=== PATIENT | male | born 1975 | race Caucasian/White ===

== ENCOUNTER 2022-07-16 04:16 | Emergency (ER) | payer OTHER, SELFPAY ==
--- NOTE | ~2022-07-16 | CT_ITS ---
EXAMINATION: CT ABDOMEN AND PELVIS WITHOUT CONTRAST CLINICAL INFORMATION: Right flank pain, hematuria. COMPARISON: None TECHNIQUE: Multidetector volumetric imaging was performed from the superior aspect of the liver through the pubic symphysis. Sagittal and coronal reformatted images were obtained on the technologist's workstation. This CT examination was performed using dose optimization techniques as appropriate, variously including the following: *Automated exposure control *Adjustment of mA and/or kV according to patient size (this includes techniques or standardized protocols for targeted exams where dose is matched to indication/reason for exam; i.e. extremities or head) *Use of iterative reconstruction technique DLP: 831 mGy-cm FINDINGS: LUNG BASES: The visualized lung bases are unremarkable. LIVER, GALLBLADDER, AND BILIARY TREE: Diffuse low density of the liver is present suspicious for hepatic steatosis. The gallbladder is unremarkable with no evidence of radiopaque gallstones, gallbladder wall thickening, or obvious pericholecystic inflammatory changes. PANCREAS: Unremarkable. SPLEEN: Several subcentimeter low density (macroscopic fat density) foci are noted within the spleen and are benign in appearance. ADRENAL GLANDS: Unremarkable. KIDNEYS AND URETERS: Right kidney: A 3.5 mm x 2 mm calculus is present at the right ureteropelvic junction 16 cm deep to the right posterior axillary line. Mild right hydronephrosis is present with preservation of the right central sinus fat. A 1 mm calculus is present in the right renal pelvis. No perinephric fluid collections noted. Mild right perinephric fat reticulation suspicious for mild perinephric inflammatory changes is noted. No additional right-sided ureteral calculi. Left kidney: No left-sided nephrolithiasis. No hydronephrosis or perinephric inflammatory changes. Single 4.5 cm diameter rounded low-density (-5 Hounsfield units) benign-appearing unilocular simple cyst requiring no additional imaging follow-up associated with the anterior superior pole the left kidney. BLADDER: Physiologically decompressed. GASTROINTESTINAL TRACT: Normal appendix. No free intraperitoneal fluid or gas collections. No intestinal dilatation or mural thickening. Normal stomach. ABDOMINAL WALL: Periumbilical hernia containing fat measuring 2.5 cm in diameter without associated inflammatory changes. LYMPH NODES: Normal. VASCULAR: Unremarkable. PELVIC VISCERA: Normal size of the prostate. OSSEOUS STRUCTURES: Partial visualization of posterior disc-osteophyte complex at L4-L5 and mild posterior broad-based disc bulge at L5-S1. No vertebral body compression deformities. CT/CT abdomen pelvis wo IV con IMPRESSION: *Right-sided obstructive nephropathy. A single 3.5 mm x 2 mm calculus is present at the right ureteropelvic junction associated with mild right hydronephrosis. This calculus resides 16 cm deep to the right posterior axillary line. An additional nonobstructing 1 mm calculus is present in the right renal pelvis. No additional right-sided urolithiasis. No left-sided urolithiasis. No perinephric fluid collections. *Normal appendix. *Partially visualized posterior disc bulges at L4-L5 and L5-S1 as detailed above.
[2022-07-16 04:56] VITALS: BP 132/75; PULSE 57; RESP 18; TEMP 36.4; O2SAT 98; BMI 38.0
[2022-07-16 05:22] LABS: MANUAL DIFF FLAG NO
[2022-07-16 05:24] LABS: Basophils Percent Auto 0.5 % (0-2); Eosinophils Absolute Auto 0.1 X10*3/uL (0.0-0.4); Eosinophils Percent Auto 1.4 % (0-4); Hematocrit 44.9 % (42.0-52.0); Hemoglobin 14.9 g/dl (14.0-18.0); Imm Gran Abs Auto 0.02 X10*3/uL (0.00-0.03); Imm Gran Pct Auto 0.3 % (0.0-0.4); Lymphocytes Absolute Auto 2.9 X10*3/uL (1.2-4.9); Lymphocytes Percent Auto 35.8 % (20-40); Mean Corpuscular HGB Conc 33.2 g/dl (31.0-36.0); Mean Corpuscular Volume 93.5 fL (80.0-98.0); Mean Platelet Volume 9.8 fL (9.4-12.4); Monocytes Absolute Auto 0.6 X10*3/uL (0.1-1.2); Monocytes Percent Auto 7.4 % (2-11); Neutrophils Absolute Auto 4.4 x10*3/uL (2.0-8.3); Neutrophils Percent Auto 54.6 % (45-73); Platelet Count 237 X10*3/uL (160-400); Red Cell Distribution Width 12.8 % (11.0-16.0)
[2022-07-16 05:25] LABS: Appearance Urine Clear; Color Urine Yellow; Glucose Urine UA Negative (Negative); Leukocyte Esterase Urine Negative (Negative); Nitrite Urine Negative (Negative); PH 5.5 (5.0-9.0); Specific Gravity - Urine 1.025 (1.005-1.025); UMIC TRIGGER UACC YES; Urine Blood Large (3+) (Negative); Urine Ketones Negative (Negative); Urine Protein Negative (Neg-Trace)
[2022-07-16 05:29] LABS: Bacteria Urine None Seen (None Seen); Hyaline Casts Urine 0-2 /LPF (0-2); RBC Urine >20 /HPF (0-2); Squamous Epithelial Cell Urine 0-2 /HPF (0-2); WBC Urine 0-5 /HPF (0-5)
[2022-07-16 05:47] LABS: Anion Gap 18 (12-20); Blood Urea Nitrogen 16 mg/dL (9-16); Calcium 9.5 mg/dL (8.4-10.2); Carbon Dioxide 22 mmol/L (22-29); Chloride 105 mmol/L (96-108); Creatinine Clr Calc Pharmacy 111.4; Estimated Glomerular Filt Rate > 60; Glucose Random 142 mg/dL (60-115); Potassium 3.9 mmol/L (3.3-5.1); Sodium 141 mmol/L (135-145)
[2022-07-16 06:06] LABS: Alanine Aminotransferase 35 U/L (0-40); Albumin Level 4.6 g/dL (3.5-5.0); Alkaline Phosphatase 59 U/L (39-117); Aspartate Amino Transferase 21 U/L (5-37); Bilirubin Direct 0.2 mg/dL (0.0-0.5); Bilirubin Total 0.5 mg/dL (0.0-1.0); Lipase 26 U/L (8-78); Total Protein 7.4 g/dL (6.5-8.0)
--- NOTE | 2022-07-16 06:08 | ED.ABDPAIN ---
HPI - Abdominal Pain General Chief Complaint: Abdominal Pain Stated Complaint: abd pain Time Seen by Provider: 07/16/22 06:04 Source: patient Mode of arrival: ambulatory Limitations: no limitations History of Present Illness HPI narrative: 47 yo maveronica no sig PMH - known umbilical hernia presents with acute onset R flank pain at 3am with some dry heaving unable to actually vomit so he noted some scant streaks of blood in mouth after trying to vomit. This has never happened before. He was able to urinate and didn't notice anything MD elicited complaint: flank pain Pertinent past history: none Onset (ago): hour(s) (3) Pain Consistency: constant Location: R flank Severity: severe Quality: stabbing Radiation: RLQ Migration to: RLQ Exacerbating factors: nothing Relieving factors: nothing Associated symptoms: nausea Related Data Previous Rx's Medication Instructions Recorded famotidine 20 mg tablet (Pepcid) 20 mg PO DAILY #14 tabs 07/16/22 ibuprofen 600 mg tablet 600 mg PO Q8H 4 days #30 tabs 07/16/22 morphine 15 mg immediate release 15 mg PO TID PRN pain #10 tabs 07/16/22 tablet ondansetron 4 mg disintegrating 4 mg PO Q8H PRN nausea and 07/16/22 tablet vomiting #20 tabs tamsulosin 0.4 mg capsule 0.4 mg PO DAILY 10 days #10 caps 07/16/22 Allergies Allergy/AdvReac Type Severity Reaction Status Date / Time No Known Allergies Allergy Verified 07/16/22 04:58 Review of Systems Review of Systems Constitutional : No Weight loss, No Fever, No Chills ENT/Mouth : No sore throat, No Rhinorrhea Eyes: No Swelling, No Redness Cardiovascular : No Chest Pain, No SOB, No edema Respiratory : No Cough, No Sputum, No Wheezing Gastrointestinal : Positive Nausea, Positive Vomiting, no Diarrhea, positive abdominal Pain, No Hematochezia, No Melena Genitourinary : No Dysuria, No Urinary Frequency, No Hematuria, No Urgency Musculoskeletal : No joint pain, No Myalgias, No Joint Swelling Skin : No Skin Lesions, No rash Neuro : No Weakness, No Numbness, No Dizziness, No Headache Psych : No Anxiety/Panic, No Depression Heme/Lymph: No Bruising, No Lymphadenopathy Endocrine : No Polyuria, No Polydipsia All other systems reviewed and are negative. PMFSH Past Medical History Attestation statement: The following information was validated with the patient. Medical History Umbilical hernia Social History Social History (Updated 07/16/22 @ 06:50 by Pauly Rangel DO) Patient Tobacco Use Status: Never used Tobacco Advance Directives: No Physical Exam ED Vital Signs: Vital Signs - 24 hr 07/16/22 04:56 07/16/22 07:24 07/16/22 08:17 Temperature 97.6 F 98.1 F Pulse Rate 57 58 57 Respiratory Rate 18 19 18 Blood Pressure 132/75 132/80 Pulse Oximetry 98 95 97 Oxygen Delivery Method Room Air Room Air Room Air BMI result Body Mass Index 38.0 Appearance: Alert. Oriented X3. in pain mils acute distress. Eyes: Pupils equal, round and reactive to light. ENT: Pharynx normal. Neck: Normal inspection. Neck supple. CVS: Normal heart rate and rhythm. Pulses normal. Respiratory: No respiratory distress. Breath sounds normal. Abdomen: Soft and mild R flank pain. UH noted but soft and nontender Skin: Skin warm and dry. Normal skin color. Normal skin turgor. Extremities: No lower extremity edema. Neuro: Oriented X 3. No motor deficit. No sensory deficit. Course Course Course Narrative: pain resolved, feels better, stable for DC discussed with Urology outpatient follow up MDM - Abdominal Pain MDM Narrative Medical decision making narrative: 47 yo male with hx of umbilical hernia here with c/o R flank pain and nausea - scant streaks of blood from forceful dry heaving (suspect MW tear) not on blood thinners. He has flank pain and hematuria suspect renal colic. IVF, IV morphine for pain, CT scan for renal colic ordered. Dispo per results and findings. Lab Data Result diagrams: 07/16/22 05:16 07/16/22 05:16 Labs: Lab Results 07/16/22 07/16/22 07/16/22 Range/Units 05:16 05:16 05:16 WBC 8.0 (4.8-10.8) X10*3/uL RBC 4.80 (4.60-5.80) X10*6/uL Hgb 14.9 (14.0-18.0) g/dl Hct 44.9 (42.0-52.0) % MCV 93.5 (80.0-98.0) fL MCH 31.0 (27.0-33.0) pg MCHC 33.2 (31.0-36.0) g/dl RDW 12.8 (11.0-16.0) % Plt Count 237 (160-400) X10*3/uL MPV 9.8 (9.4-12.4) fL Immature Gran % (Auto) 0.3 (0.0-0.4) % Neut % (Auto) 54.6 (45-73) % Lymph % (Auto) 35.8 (20-40) % [place] % (Auto) 7.4 (2-11) % Eos % (Auto) 1.4 (0-4) % Baso % (Auto) 0.5 (0-2) % Lymph # (Auto) 2.9 (1.2-4.9) X10*3/uL [place] # (Auto) 0.6 (0.1-1.2) X10*3/uL Eos # (Auto) 0.1 (0.0-0.4) X10*3/uL Baso # (Auto) 0.0 (0.0-0.2) X10*3/uL Abs Immat Gran (auto) 0.02 (0.00-0.03) X10*3/uL Absolute Neuts (auto) 4.4 (2.0-8.3) x10*3/uL Absolute Nucleated RBC 0.000 (0.0-0.012) X10*3/uL Nucleated RBC % (auto) 0.0 (0.0-0.2) /100WBC Sodium 141 (135-145) mmol/L Potassium 3.9 (3.3-5.1) mmol/L Chloride 105 (96-108) mmol/L Carbon Dioxide 22 (22-29) mmol/L Anion Gap 18 (12-20) BUN 16 (9-16) mg/dL Creatinine 0.96 (0.5-1.4) mg/dL Estim Creat Clear Calc 111.4 Estimated GFR > 60 Random Glucose 142 H (60-115) mg/dL Calcium 9.5 (8.4-10.2) mg/dL Total Bilirubin 0.5 (0.0-1.0) mg/dL Direct Bilirubin 0.2 (0.0-0.5) mg/dL AST 21 (5-37) U/L ALT 35 (0-40) U/L Alkaline Phosphatase 59 (39-117) U/L Total Protein 7.4 (6.5-8.0) g/dL Albumin 4.6 (3.5-5.0) g/dL Lipase 26 (8-78) U/L Urine Color Yellow Urine Appearance Clear Urine pH 5.5 (5.0-9.0) Ur Specific [place] 1.025 (1.005-1.025) Urine Protein Negative (Neg-Trace) mg/dL Urine Glucose (UA) Negative (Negative) mg/dL Urine Ketones Negative (Negative) mg/dL Urine Blood Large (3+) H (Negative) Urine Nitrite Negative (Negative) Ur Leukocyte Esterase Negative (Negative) Urine RBC >20 H (0-2) /HPF Urine WBC 0-5 (0-5) /HPF Ur Squamous Epith Cells 0-2 (0-2) /HPF Urine Bacteria None Seen (None Seen) Hyaline Casts 0-2 (0-2) /LPF COVID-19 (NAJMA) (Negative) COVID-19 Clin Com 07/16/22 Range/Units 08:13 WBC (4.8-10.8) X10*3/uL RBC (4.60-5.80) X10*6/uL Hgb (14.0-18.0) g/dl Hct (42.0-52.0) % MCV (80.0-98.0) fL MCH (27.0-33.0) pg MCHC (31.0-36.0) g/dl RDW (11.0-16.0) % Plt Count (160-400) X10*3/uL MPV (9.4-12.4) fL Immature Gran % (Auto) (0.0-0.4) % Neut % (Auto) (45-73) % Lymph % (Auto) (20-40) % [place] % (Auto) (2-11) % Eos % (Auto) (0-4) % Baso % (Auto) (0-2) % Lymph # (Auto) (1.2-4.9) X10*3/uL [place] # (Auto) (0.1-1.2) X10*3/uL Eos # (Auto) (0.0-0.4) X10*3/uL Baso # (Auto) (0.0-0.2) X10*3/uL Abs Immat Gran (auto) (0.00-0.03) X10*3/uL Absolute Neuts (auto) (2.0-8.3) x10*3/uL Absolute Nucleated RBC (0.0-0.012) X10*3/uL Nucleated RBC % (auto) (0.0-0.2) /100WBC Sodium (135-145) mmol/L Potassium (3.3-5.1) mmol/L Chloride (96-108) mmol/L Carbon Dioxide (22-29) mmol/L Anion Gap (12-20) BUN (9-16) mg/dL Creatinine (0.5-1.4) mg/dL Estim Creat Clear Calc Estimated GFR Random Glucose (60-115) mg/dL Calcium (8.4-10.2) mg/dL Total Bilirubin (0.0-1.0) mg/dL Direct Bilirubin (0.0-0.5) mg/dL AST (5-37) U/L ALT (0-40) U/L Alkaline Phosphatase (39-117) U/L Total Protein (6.5-8.0) g/dL Albumin (3.5-5.0) g/dL Lipase (8-78) U/L Urine Color Urine Appearance Urine pH (5.0-9.0) Ur Specific [place] (1.005-1.025) Urine Protein (Neg-Trace) mg/dL Urine Glucose (UA) (Negative) mg/dL Urine Ketones (Negative) mg/dL Urine Blood (Negative) Urine Nitrite (Negative) Ur Leukocyte Esterase (Negative) Urine RBC (0-2) /HPF Urine WBC (0-5) /HPF Ur Squamous Epith Cells (0-2) /HPF Urine Bacteria (None Seen) Hyaline Casts (0-2) /LPF COVID-19 (NAJMA) Negative (Negative) COVID-19 Clin Com See Note Discharge Plan Discharge Clinical Impression: Ureterolithiasis Patient Disposition: Home, Self-Care Instructions: Ureteral Stones (ED) Additional Instructions: return to ED for any worsening symptoms or concerns follow up Wednesday if not better return if you do not feel better - vomiting, fevers, pain out of control drink plenty of water start the tamsulosin tomorrow 07/17 OSSEOUS STRUCTURES: Partial visualization of posterior disc-osteophyte complex at L4-L5 and mild posterior broad-based disc bulge at L5-S1. No vertebral body compression deformities.? CT/CT abdomen pelvis wo IV con IMPRESSION: *Right-sided obstructive nephropathy. A single 3.5 mm x 2 mm calculus is present at the right ureteropelvic junction associated with mild right hydronephrosis. This calculus resides 16 cm deep to the right posterior axillary line. An additional nonobstructing 1 mm calculus is present in the right renal pelvis. No additional right-sided urolithiasis. No left-sided urolithiasis. No perinephric fluid collections. *Normal appendix. *Partially visualized posterior disc bulges at L4-L5 and L5-S1 as detailed above. Prescriptions: New famotidine [Pepcid] 20 mg tablet 20 mg PO DAILY Qty: 14 0RF tamsulosin 0.4 mg capsule 0.4 mg PO DAILY 10 Days Qty: 10 0RF ibuprofen 600 mg tablet 600 mg PO Q8H 4 Days Qty: 30 0RF morphine 15 mg tablet 15 mg PO TID PRN (Reason: pain) Qty: 10 0RF Rx Instructions: partial fill okay; Partial Fill upon patient request. ondansetron 4 mg tablet,disintegrating 4 mg PO Q8H PRN (Reason: nausea and vomiting) Qty: 20 0RF Referrals: Kelly Riggs MD [Physician] - 07/20/22 (if not better ) Stand Alone Forms: Work/School Release Interventions: ED Discharge Assessment Last Done: 07/16/22 09:09 Discharge Date/Time: 07/16/22 09:10
[2022-07-16] MEDS: Morphine Sulfate 4 MG/ML CARTRIDGE IVPUSH (06:29)
[2022-07-16] MEDS: Famotidine/PF 20 MG/2 ML VIAL IVPUSH (06:30)
[2022-07-16] MEDS: 0.9 % Sodium Chloride 1,000 ML 999 ML IV (06:30)
[2022-07-16] MEDS: ondansetron HCL 4 MG/2 ML VIAL IVPUSH (06:30)
[2022-07-16 07:24] VITALS: BP 132/80; PULSE 58; RESP 19; TEMP 36.7; O2SAT 95
[2022-07-16] MEDS: Tamsulosin HCL 0.4 MG CAPSULE PO (08:08)
[2022-07-16 08:17] VITALS: PULSE 57; RESP 18; O2SAT 97
--- NOTE | 2022-07-16 08:20 | PC.NURSE ---
Pt alert and oriented, respirations even and unlabored. Pt reports improvement with pain from 10 to 7, encouraged to call if pain worsens. Resting quietly with at bedside.
[2022-07-16 08:35] LABS: COVID-19 Test Negative (Negative); IDNOW Serial# 9DB6401D
== END 2022-07-16 09:10 | disposition home or self-care (01) ==
PROVIDERS: Emergency Provider Emergency Medicine
DX: N13.2 Hydronephrosis with renal and ureteral calculous obstruction (principal); R11.2 Nausea with vomiting, unspecified; Z20.822 Contact with and (suspected) exposure to COVID-19
CPT/HCPCS: 36415; 74176; 80048; 80076; 81001; 83690; 85025; 87635; 96374; 96375; 99284; J2270; J2405

== ENCOUNTER 2022-10-24 13:24 | Emergency (ER) | payer OTHER, SELFPAY ==
--- NOTE | ~2022-10-24 | CT_ITS ---
EXAMINATION: CT ABDOMEN AND PELVIS WITHOUT CONTRAST CLINICAL INFORMATION: right flank abd pain hx of kidney stones . COMPARISON: 07/16/2022. TECHNIQUE: Multidetector volumetric imaging was performed from the superior aspect of the liver through the pubic symphysis without contrast per renal stone protocol. Sagittal and coronal reformatted images were obtained on the technologist workstation. This CT examination was performed using dose optimization techniques as appropriate, variously including the following: *Automated exposure control *Adjustment of mA and/or kV according to patient size (this includes techniques or standardized protocols for targeted exams where dose is matched to indication/reason for exam; i.e. extremities or head) *Use of iterative reconstruction technique DLP: 831 mGy-cm. FINDINGS: LUNG BASES: The visualized lung bases are unremarkable. LIVER, GALLBLADDER, BILIARY TREE: Diffuse fatty infiltration of the liver with mild focal fatty sparing adjacent to the gallbladder fossa. The gallbladder is contracted but otherwise unremarkable with no evidence of radiopaque gallstones, gallbladder wall thickening, or obvious pericholecystic inflammatory changes. PANCREAS: Unremarkable. SPLEEN: Unremarkable. ADRENAL GLANDS: Unremarkable. KIDNEYS AND URETERS: The kidneys are normal in size, shape, and attenuation. Low-attenuation 5 cm cyst in the anterior mid to upper pole of the left kidney. Mild right-sided hydronephrosis and hydroureter without significant perinephric stranding. Right ureter is dilated throughout its course up to a 2 mm calcification in the distal right ureter seen best on axial image [id number] which is just proximal to a 6 mm calcification at the right ureteral vesicular junction. The skeletal secretions are seen more proximally in the right collecting system and pelvis on the 07/16/2022 study. BLADDER: Decompressed GASTROINTESTINAL TRACT: Scattered colonic diverticulosis. No colonic wall thickening or pericolonic inflammatory change to suggest diverticulitis. Normal-appearing appendix in the right lower quadrant ABDOMINAL WALL: Hernia mesh along the anterior abdominal wall. There is a fluid seen along the hernia mesh with the fluid measuring up to 2.9 cm in maximal thickness. I do not appreciate any significant surrounding inflammatory changes. LYMPHOVASCULAR STRUCTURES: No lymphadenopathy. The aorta is unremarkable.. PELVIC VISCERA: Unremarkable. OSSEUS STRUCTURES: Unremarkable. CT/CT abdomen pelvis wo IV con IMPRESSION: 1. Right-sided hydronephrosis and hydroureter extending up to a 6 mm calcification at the right ureterovesicular junction. There is also a 2 mm calcification in the distal right ureter just proximal to the 6 mm calcification. 2. Hernia mesh along the anterior abdominal wall. There is a fluid collection seen surrounding the hernia mesh measuring up to 2.9 cm in maximal thickness. This is nonspecific. I do not appreciate any significant surrounding inflammatory changes. Clinical correlation and timing with recent surgery would be recommended 3. Diffuse fatty infiltration of the liver with focal fatty sparing adjacent to the gallbladder fossa.
--- NOTE | 2022-10-24 13:36 | ED.ABDPAIN ---
HPI - Abdominal Pain General Chief Complaint: Abdominal Pain <MIGUEL ANGEL Payan - Last Filed: 10/24/22 13:41> Stated Complaint: Possible kidney stones <MIGUEL ANGEL Payan - Last Filed: 10/24/22 13:41> Time Seen by Provider: 10/24/22 16:48 <MIGUEL ANGEL Payan - Last Filed: 10/24/22 13:41> Source: patient <MIGUEL ANGEL Jaffe - Last Filed: 10/25/22 16:31> Mode of arrival: ambulatory <MIGUEL ANGEL Jaffe - Last Filed: 10/25/22 16:31> Limitations: no limitations <MIGUEL ANGEL Jaffe Last Filed: 10/25/22 16:31> History of Present Illness HPI narrative: 47-year-old male history of Kidney stones and recent her[place] in [facility] [place] [place] presents to ED for right flank pain for at least 3 days radiating to right lower abdomen. Patient denies any dysuria, hematuria, testicular pain, fever, or chills. Patient denies any nausea or vomiting. Patient states kidney stone also last July. Patient did not follow-up with urologist <MIGUEL ANGEL Jaffe - Last Filed: 10/25/22 16:31> Related Data Home Medications: Previous Rx's Medication Instructions Recorded famotidine 20 mg tablet (Pepcid) 20 mg PO DAILY #14 tabs 07/16/22 ibuprofen 600 mg tablet 600 mg PO Q8H 4 days #30 tabs 07/16/22 morphine 15 mg immediate release 15 mg PO TID PRN pain #10 tabs 07/16/22 tablet ondansetron 4 mg disintegrating 4 mg PO Q8H PRN nausea and 07/16/22 tablet vomiting #20 tabs tamsulosin 0.4 mg capsule 0.4 mg PO DAILY 10 days #10 caps 07/16/22 naproxen 500 mg tablet 500 mg PO BID PRN pain 7 days #14 10/24/22 tabs oxycodone 5 mg capsule 5 mg PO TID PRN pain 3 days #9 caps 10/24/22 tamsulosin 0.4 mg capsule (Flomax) 0.4 mg PO DAILY 10 days #10 caps 10/24/22 <MIGUEL ANGEL Payan - Last Filed: 10/24/22 13:41> Allergies/Adverse Reactions: Allergies Allergy/AdvReac Type Severity Reaction Status Date / Time No Known Allergies Allergy Verified 07/16/22 04:58 <MIGUEL ANGEL Payan - Last Filed: 10/24/22 13:41> Review of Systems Review of Systems Right-sided flank pain <MIGUEL ANGEL Jaffe Last Filed: 10/25/22 16:31> Yes all other systems are reviewed and are negative <MIGUEL ANGEL Jaffe - Last Filed: 10/25/22 16:31> [facility] Past Medical History Medical History: Medical History Umbilical hernia <MIGUEL ANGEL Payan - Last Filed: 10/24/22 13:41> Social History Social History: Social History (Updated 07/16/22 @ 06:50 by Pauly Rangel DO) Alcohol intake: former Patient Tobacco Use Status: Never used Tobacco Smoked in Last 30 Days: No Use of substances other than those prescribed or required for medical reasons: No Advance Directives: No Advance Directives Information Provided: No <MIGUEL ANGEL Payan - Last Filed: 10/24/22 13:41> Physical Exam ED Vital Signs: Vital Signs - 24 hr 10/24/22 16:42 Pulse Rate 80 Respiratory Rate 16 Blood Pressure 146/86 H Pulse Oximetry 99 Oxygen Delivery Method Room Air BMI result Body Mass Index 37.7 <MIGUEL ANGEL Payan - Last Filed: 10/24/22 13:41> Vital Signs - 24 hr 10/24/22 16:42 Pulse Rate 80 Respiratory Rate 16 Blood Pressure 146/86 H Pulse Oximetry 99 Oxygen Delivery Method Room Air BMI result Body Mass Index 37.7 <MIGUEL ANGEL Jaffe - Last Filed: 10/25/22 16:31> Const General: cooperative, healthy appearing, comfortable, no acute distress, well developed, alert, awake and Physically active <MIGUEL ANGEL Jaffe Last Filed: 10/25/22 16:31> Orientation/consciousness: oriented to person, oriented to place, oriented to time and patient oriented x3 <MIGUEL ANGEL Jaffe Last Filed: 10/25/22 16:31> HENMT Head: Yes normal to inspection, Yes No palpable skull fracture present, Yes normocephalic, Yes atraumatic and No abrasion <Yossi Bossman, PA Magdalene Last Filed: 10/25/22 16:31> Eyes General: appearance normal, both eyes and all related structures <Yossi Bossman, PA Magdalene Last Filed: 10/25/22 16:31> Neck Neck: Yes normal visual inspection, Yes full ROM, Yes no lymphadenopathy, Yes no meningeal signs, Yes trachea midline, Yes supple, No anterior neck swelling and No tender <Yossi Bossman, PA Magdalene Last Filed: 10/25/22 16:31> Chest Chest palpation & inspection: normal inspection of the chest and normal palpation of entire chest wall <Yossi Bossman, PA Last Filed: 10/25/22 16:31> Resp Effort & Inspection: normal respiratory effort and able to speak in complete sentences <MIGUEL ANGEL Jaffe Magdalene Last Filed: 10/25/22 16:31> Auscultation: clear to auscultation bilaterally <MIGUEL ANGEL Jaffe Last Filed: 10/25/22 16:31> Cardio Jugular venous distension: no JVD <MIGUEL ANGEL Jaffe Magdalene Last Filed: 10/25/22 16:31> Heart sounds: S1 normal heart sound present and S2 normal heart sound present <Yossi Bossman, PA Last Filed: 10/25/22 16:31> GI Inspection: Yes normal to inspection and No abdominal wall ecchymosis <Yossi Bossman, PA Last Filed: 10/25/22 16:31> Palpation (GI): Soft to palpation, not firm, Tenderness to palpation present (GI) in the RLQ, no guarding and not rigid <Yossi Bossman, PA Magdalene Last Filed: 10/25/22 16:31> General: Yes CVA tenderness (RIght) <Yossi Bossman, PA Magdalene Last Filed: 10/25/22 16:31> Back/Spine/Pelvis Back: CVA tenderness (RIght) <MIGUEL ANGEL Jaffe Magdalene Last Filed: 10/25/22 16:31> Skin General skin exam: no rashes or lesions noted and elasticity normal <Yossi Bossman, PA Magdalene Last Filed: 10/25/22 16:31> Neuro General: oriented to person, oriented to place, oriented to time, patient oriented x3, gait normal, tone normal, moves all extremities, Normal light touch and pain sensation, no meningeal signs, no focal motor deficits and CN's II-XI intact bilaterally <MIGUEL ANGEL Jaffe - Last Filed: 10/25/22 16:31> Extrem General: Yes normal to inspection and Yes full ROM <MIGUEL ANGEL Jaffe - Last Filed: 10/25/22 16:31> Psych Appearance: grossly normal, well kempt and not disheveled <MIGUEL ANGEL Jaffe - Last Filed: 10/25/22 16:31> Course Course Course Narrative: ELIZABETH-13:40PM - 47yoM who is status post abdominal hernia on 10/02/2022 at [facility] who has a past medical history of kidney stones was presenting to the ER with complaints of right flank pain since . Reports he had a last bowel movement on Wednesday reports associated constipation and nausea. Denies any fevers, chest pain, cough, dysuria, hematuria, abnormal penile discharge, recent trauma or any other symptoms complaints or concerns at this time. Was seen in July here for similar symptoms and was diagnosed with 2 kidney stones unsure if he passed at home. Never followed up with urologist. Plan: Labs, UA, CT scan abdomen pelvis with IV contrast. Patient will be sent back to where room to be evaluated in the ED. <MIGUEL ANGEL Payan - Last Filed: 10/24/22 13:41> Reevaluation(s) Reevaluation #1: Negative for white blood cell count. Lab shows a KI. Abdominal CT scan shows 2 large ureter vesicular stone with hydronephrosis. Urine negative for any infection. Will give fluids and pain medication. Will contact urologist on-call. Abdominal CT scan shows some fluid in front of mesh hernia repair. Abdomen with mesh was done negative for any erythema or pus discharge or foul odor on physical exam. Is discussed with who states most likely has seroma. Abdominal arear near umbilical and incisions negative for any erythema, tenderness, pus drainage, or foul ordor <MIGUEL ANGEL Jaffe - Last Filed: 10/25/22 16:31> Time: 17:27 <MIGUEL ANGEL Jaffe - Last Filed: 10/25/22 16:31> Reevaluation #2: Spoke with urologist, Dr. Linden De La Rosa, on-call and she was made aware of patient's history, physical exam, labs, and CT scan reading and imaging. She was sent patient CT scan imaging and labs. She states and patient's pain resolved or is comfortable he could be discharged with outpatient follow-up. She recommend lighting Lactate Ringers as recommended by Dr. De La Rosa. Patient was given 2 bags of IV lactated Ringer and creatinine improved. Patient SEAN. She recommend patient be discharged with urinary strainer. Patient will be discharged with pain medication, Flomax and follow-up as outpatient. He recommends patient could be followed as outpatient. <MIGUEL ANGEL Jaffe - Last Filed: 10/25/22 16:31> Time: 22:07 <MIGUEL ANGEL Jaffe - Last Filed: 10/25/22 16:31> Medical Decision Making Medical Decision Making MDM Narrative: 47-year-old male with right flank pain with CT scan read of kidney stone. Patient not septic. <MIGUEL ANGEL Jaffe - Last Filed: 10/25/22 16:31> Differential Diagnosis Differential Diagnoses: The differential diagnosis associated with the presentation includes (Appendicitis, kidney stone, pyelonephritis.) <MIGUEL ANGEL Jaffe - Last Filed: 10/25/22 16:31> Admission/Observation Consideration of admission/observation: Escalation of care including admission/observation considered <MIGUEL ANGEL Jaffe Last Filed: 10/25/22 16:31> observation considered <MIGUEL ANGEL Jaffe - Last Filed: 10/25/22 16:31> Lab Data [facility] Lab Attestation statement: I reviewed the patient's lab results. <MIGUEL ANGEL Jaffe - Last Filed: 10/25/22 16:31> Result Diagrams: 10/24/22 14:10 10/24/22 14:10 <MIGUEL ANGEL Payan - Last Filed: 10/24/22 13:41> Labs: Lab Results 10/24/22 10/24/22 10/24/22 Range/Units 14:10 14:10 14:10 WBC 9.9 (4.8-10.8) X10*3/uL RBC 4.73 (4.60-5.80) X10*6/uL Hgb 14.7 (14.0-18.0) g/dl Hct 43.7 (42.0-52.0) % MCV 92.4 (80.0-98.0) fL MCH 31.1 (27.0-33.0) pg MCHC 33.6 (31.0-36.0) g/dl RDW 12.4 (11.0-16.0) % Plt Count 235 (160-400) X10*3/uL MPV 9.5 (9.4-12.4) fL Immature Gran % (Auto) 0.3 (0.0-0.4) % Neut % (Auto) 75.8 H (45-73) % Lymph % (Auto) 15.5 L (20-40) % [place] % (Auto) 6.4 (2-11) % Eos % (Auto) 1.8 (0-4) % Baso % (Auto) 0.2 (0-2) % Lymph # (Auto) 1.5 (1.2-4.9) X10*3/uL [place] # (Auto) 0.6 (0.1-1.2) X10*3/uL Eos # (Auto) 0.2 (0.0-0.4) X10*3/uL Baso # (Auto) 0.0 (0.0-0.2) X10*3/uL Abs Immat Gran (auto) 0.03 (0.00-0.03) X10*3/uL Absolute Neuts (auto) 7.5 (2.0-8.3) x10*3/uL Absolute Nucleated RBC 0.000 (0.0-0.012) X10*3/uL Nucleated RBC % (auto) 0.0 (0.0-0.2) /100WBC PT 11.8 (10.0-13.1) SEC INR 1.0 (0.9-1.1) Sodium 143 (135-145) mmol/L Potassium 4.4 (3.3-5.1) mmol/L Chloride 106 (96-108) mmol/L Carbon Dioxide 26 (22-29) mmol/L Anion Gap 15 (12-20) BUN 17 H (9-16) mg/dL Creatinine 1.53 H (0.5-1.4) mg/dL Estim Creat Clear Calc 69.5 Estimated GFR 49 Random Glucose 129 H (60-115) mg/dL Calcium 9.2 (8.4-10.2) mg/dL Magnesium 2.1 (1.6-2.6) mg/dL Total Bilirubin 0.5 (0.0-1.0) mg/dL AST 16 (5-37) U/L ALT 22 (0-40) U/L Alkaline Phosphatase 72 (39-117) U/L Total Protein 6.9 (6.5-8.0) g/dL Albumin 4.3 (3.5-5.0) g/dL Urine Color Urine Appearance Urine pH (5.0-9.0) Ur Specific [place] (1.005-1.025) Urine Protein (Neg-Trace) mg/dL Urine Glucose (UA) (Negative) mg/dL Urine Ketones (Negative) mg/dL Urine Blood (Negative) Urine Nitrite (Negative) Ur Leukocyte Esterase (Negative) Urine RBC (0-2) /HPF Urine WBC (0-5) /HPF Ur Squamous Epith Cells (0-2) /HPF Urine Bacteria (None Seen) Hyaline Casts (0-2) /LPF 10/24/22 10/24/22 Range/Units 14:10 20:55 WBC (4.8-10.8) X10*3/uL RBC (4.60-5.80) X10*6/uL Hgb (14.0-18.0) g/dl Hct (42.0-52.0) % MCV (80.0-98.0) fL MCH (27.0-33.0) pg MCHC (31.0-36.0) g/dl RDW (11.0-16.0) % Plt Count (160-400) X10*3/uL MPV (9.4-12.4) fL Immature Gran % (Auto) (0.0-0.4) % Neut % (Auto) (45-73) % Lymph % (Auto) (20-40) % [place] % (Auto) (2-11) % Eos % (Auto) (0-4) % Baso % (Auto) (0-2) % Lymph # (Auto) (1.2-4.9) X10*3/uL [place] # (Auto) (0.1-1.2) X10*3/uL Eos # (Auto) (0.0-0.4) X10*3/uL Baso # (Auto) (0.0-0.2) X10*3/uL Abs Immat Gran (auto) (0.00-0.03) X10*3/uL Absolute Neuts (auto) (2.0-8.3) x10*3/uL Absolute Nucleated RBC (0.0-0.012) X10*3/uL Nucleated RBC % (auto) (0.0-0.2) /100WBC PT (10.0-13.1) SEC INR (0.9-1.1) Sodium 139 (135-145) mmol/L Potassium 3.9 (3.3-5.1) mmol/L Chloride 107 (96-108) mmol/L Carbon Dioxide 24 (22-29) mmol/L Anion Gap 12 (12-20) BUN 14 (9-16) mg/dL Creatinine 1.22 (0.5-1.4) mg/dL Estim Creat Clear Calc 87.2 Estimated GFR > 60 Random Glucose 87 (60-115) mg/dL Calcium 8.4 D (8.4-10.2) mg/dL Magnesium (1.6-2.6) mg/dL Total Bilirubin 0.6 (0.0-1.0) mg/dL AST 14 (5-37) U/L ALT 18 (0-40) U/L Alkaline Phosphatase 58 (39-117) U/L Total Protein 5.7 L (6.5-8.0) g/dL Albumin 3.6 (3.5-5.0) g/dL Urine Color Yellow Urine Appearance Clear Urine pH 6.0 (5.0-9.0) Ur Specific [place] 1.020 (1.005-1.025) Urine Protein Negative (Neg-Trace) mg/dL Urine Glucose (UA) Negative (Negative) mg/dL Urine Ketones Negative (Negative) mg/dL Urine Blood Trace H (Negative) Urine Nitrite Negative (Negative) Ur Leukocyte Esterase Negative (Negative) Urine RBC 0-2 (0-2) /HPF Urine WBC 0-5 (0-5) /HPF Ur Squamous Epith Cells 0-2 (0-2) /HPF Urine Bacteria None Seen (None Seen) Hyaline Casts 0-2 (0-2) /LPF <MIGUEL ANGEL Payan - Last Filed: 10/24/22 13:41> Lab Results 10/24/22 10/24/22 10/24/22 Range/Units 14:10 14:10 14:10 WBC 9.9 (4.8-10.8) X10*3/uL RBC 4.73 (4.60-5.80) X10*6/uL Hgb 14.7 (14.0-18.0) g/dl Hct 43.7 (42.0-52.0) % MCV 92.4 (80.0-98.0) fL MCH 31.1 (27.0-33.0) pg MCHC 33.6 (31.0-36.0) g/dl RDW 12.4 (11.0-16.0) % Plt Count 235 (160-400) X10*3/uL MPV 9.5 (9.4-12.4) fL Immature Gran % (Auto) 0.3 (0.0-0.4) % Neut % (Auto) 75.8 H (45-73) % Lymph % (Auto) 15.5 L (20-40) % [place] % (Auto) 6.4 (2-11) % Eos % (Auto) 1.8 (0-4) % Baso % (Auto) 0.2 (0-2) % Lymph # (Auto) 1.5 (1.2-4.9) X10*3/uL [place] # (Auto) 0.6 (0.1-1.2) X10*3/uL Eos # (Auto) 0.2 (0.0-0.4) X10*3/uL Baso # (Auto) 0.0 (0.0-0.2) X10*3/uL Abs Immat Gran (auto) 0.03 (0.00-0.03) X10*3/uL Absolute Neuts (auto) 7.5 (2.0-8.3) x10*3/uL Absolute Nucleated RBC 0.000 (0.0-0.012) X10*3/uL Nucleated RBC % (auto) 0.0 (0.0-0.2) /100WBC PT 11.8 (10.0-13.1) SEC INR 1.0 (0.9-1.1) Sodium 143 (135-145) mmol/L Potassium 4.4 (3.3-5.1) mmol/L Chloride 106 (96-108) mmol/L Carbon Dioxide 26 (22-29) mmol/L Anion Gap 15 (12-20) BUN 17 H (9-16) mg/dL Creatinine 1.53 H (0.5-1.4) mg/dL Estim Creat Clear Calc 69.5 Estimated GFR 49 Random Glucose 129 H (60-115) mg/dL Calcium 9.2 (8.4-10.2) mg/dL Magnesium 2.1 (1.6-2.6) mg/dL Total Bilirubin 0.5 (0.0-1.0) mg/dL AST 16 (5-37) U/L ALT 22 (0-40) U/L Alkaline Phosphatase 72 (39-117) U/L Total Protein 6.9 (6.5-8.0) g/dL Albumin 4.3 (3.5-5.0) g/dL Urine Color Urine Appearance Urine pH (5.0-9.0) Ur Specific [place] (1.005-1.025) Urine Protein (Neg-Trace) mg/dL Urine Glucose (UA) (Negative) mg/dL Urine Ketones (Negative) mg/dL Urine Blood (Negative) Urine Nitrite (Negative) Ur Leukocyte Esterase (Negative) Urine RBC (0-2) /HPF Urine WBC (0-5) /HPF Ur Squamous Epith Cells (0-2) /HPF Urine Bacteria (None Seen) Hyaline Casts (0-2) /LPF 10/24/22 10/24/22 Range/Units 14:10 20:55 WBC (4.8-10.8) X10*3/uL RBC (4.60-5.80) X10*6/uL Hgb (14.0-18.0) g/dl Hct (42.0-52.0) % MCV (80.0-98.0) fL MCH (27.0-33.0) pg MCHC (31.0-36.0) g/dl RDW (11.0-16.0) % Plt Count (160-400) X10*3/uL MPV (9.4-12.4) fL Immature Gran % (Auto) (0.0-0.4) % Neut % (Auto) (45-73) % Lymph % (Auto) (20-40) % [place] % (Auto) (2-11) % Eos % (Auto) (0-4) % Baso % (Auto) (0-2) % Lymph # (Auto) (1.2-4.9) X10*3/uL [place] # (Auto) (0.1-1.2) X10*3/uL Eos # (Auto) (0.0-0.4) X10*3/uL Baso # (Auto) (0.0-0.2) X10*3/uL Abs Immat Gran (auto) (0.00-0.03) X10*3/uL Absolute Neuts (auto) (2.0-8.3) x10*3/uL Absolute Nucleated RBC (0.0-0.012) X10*3/uL Nucleated RBC % (auto) (0.0-0.2) /100WBC PT (10.0-13.1) SEC INR (0.9-1.1) Sodium 139 (135-145) mmol/L Potassium 3.9 (3.3-5.1) mmol/L Chloride 107 (96-108) mmol/L Carbon Dioxide 24 (22-29) mmol/L Anion Gap 12 (12-20) BUN 14 (9-16) mg/dL Creatinine 1.22 (0.5-1.4) mg/dL Estim Creat Clear Calc 87.2 Estimated GFR > 60 Random Glucose 87 (60-115) mg/dL Calcium 8.4 D (8.4-10.2) mg/dL Magnesium (1.6-2.6) mg/dL Total Bilirubin 0.6 (0.0-1.0) mg/dL AST 14 (5-37) U/L ALT 18 (0-40) U/L Alkaline Phosphatase 58 (39-117) U/L Total Protein 5.7 L (6.5-8.0) g/dL Albumin 3.6 (3.5-5.0) g/dL Urine Color Yellow Urine Appearance Clear Urine pH 6.0 (5.0-9.0) Ur Specific [place] 1.020 (1.005-1.025) Urine Protein Negative (Neg-Trace) mg/dL Urine Glucose (UA) Negative (Negative) mg/dL Urine Ketones Negative (Negative) mg/dL Urine Blood Trace H (Negative) Urine Nitrite Negative (Negative) Ur Leukocyte Esterase Negative (Negative) Urine RBC 0-2 (0-2) /HPF Urine WBC 0-5 (0-5) /HPF Ur Squamous Epith Cells 0-2 (0-2) /HPF Urine Bacteria None Seen (None Seen) Hyaline Casts 0-2 (0-2) /LPF <MIGUEL ANGEL Jaffe - Last Filed: 10/25/22 16:31> Independent Interpretation I performed an independent interpretation of an: CT Scan <MIGUEL ANGEL Jaffe - Last Filed: 10/25/22 16:31> Radiology Impression Discussion of test interpretation with radiology: I have reviewed the radiologist's reading. <MIGUEL ANGEL Jaffe - Last Filed: 10/25/22 16:31> Prescription Management I considered prescription management with: Pain Medication and Other <MIGUEL ANGEL Jaffe - Last Filed: 10/25/22 16:31> Flomax <MIGUEL ANGEL Jaffe - Last Filed: 10/25/22 16:31> Medications Administered Discontinued Medications Generic Name Dose Route Start Last Admin Trade Name Trevonq PRN Reason Stop Dose Admin Hydromorphone HCl 0.5 mg 10/24/22 18:15 10/24/22 19:22 Hydromorphone Hcl 0.5 Mg/0.5 Ml Syringe IVPUSH 10/24/22 18:16 0.5 mg ONCE ONE Administration Protocol Sodium Chloride 1,000 mls @ 999 mls/hr 10/24/22 17:00 10/24/22 19:00 Ns IV 10/24/22 18:00 Infused .Q1H1M STA Infusion Sodium Chloride 1,000 mls @ 999 mls/hr 10/24/22 17:01 10/24/22 19:00 Ns IV 10/24/22 18:01 Infused .Q1H1M STA Infusion Lactated Ringer's 1,000 mls @ 999 mls/hr 10/24/22 18:00 10/24/22 20:01 Lr IV 10/24/22 19:00 Infused .Q1H1M STA Infusion Lactated Ringer's 1,000 mls @ 999 mls/hr 10/24/22 18:00 10/24/22 20:02 Lr IV 10/24/22 19:00 Infused .Q1H1M STA Infusion Ketorolac Tromethamine 30 mg 10/24/22 17:00 10/24/22 17:44 Ketorolac Tromethamine 30 Mg/Ml Vial IVPUSH 10/24/22 17:01 30 mg ONCE ONE Administration Morphine Sulfate 4 mg 10/24/22 17:00 10/24/22 17:44 Morphine Sulfate 4 Mg/Ml Cartridge IVPUSH 10/24/22 17:01 4 mg ONCE ONE Administration Protocol Tamsulosin HCl 0.8 mg 10/24/22 18:00 10/24/22 19:22 Tamsulosin Hcl 0.4 Mg Capsule PO 10/24/22 18:01 0.8 mg ONCE ONE Administration <MIGUEL ANGEL Payan - Last Filed: 10/24/22 13:41> Medications Administered Discontinued Medications Generic Name Dose Route Start Last Admin Trade Name Trevonq PRN Reason Stop Dose Admin Hydromorphone HCl 0.5 mg 10/24/22 18:15 10/24/22 19:22 Hydromorphone Hcl 0.5 Mg/0.5 Ml Syringe IVPUSH 10/24/22 18:16 0.5 mg ONCE ONE Administration Protocol Sodium Chloride 1,000 mls @ 999 mls/hr 10/24/22 17:00 10/24/22 19:00 Ns IV 10/24/22 18:00 Infused .Q1H1M STA Infusion Sodium Chloride 1,000 mls @ 999 mls/hr 10/24/22 17:01 10/24/22 19:00 Ns IV 10/24/22 18:01 Infused .Q1H1M STA Infusion Lactated Ringer's 1,000 mls @ 999 mls/hr 10/24/22 18:00 10/24/22 20:01 Lr IV 10/24/22 19:00 Infused .Q1H1M STA Infusion Lactated Ringer's 1,000 mls @ 999 mls/hr 10/24/22 18:00 10/24/22 20:02 Lr IV 10/24/22 19:00 Infused .Q1H1M STA Infusion Ketorolac Tromethamine 30 mg 10/24/22 17:00 10/24/22 17:44 Ketorolac Tromethamine 30 Mg/Ml Vial IVPUSH 10/24/22 17:01 30 mg ONCE ONE Administration Morphine Sulfate 4 mg 10/24/22 17:00 10/24/22 17:44 Morphine Sulfate 4 Mg/Ml Cartridge IVPUSH 10/24/22 17:01 4 mg ONCE ONE Administration Protocol Tamsulosin HCl 0.8 mg 10/24/22 18:00 10/24/22 19:22 Tamsulosin Hcl 0.4 Mg Capsule PO 10/24/22 18:01 0.8 mg ONCE ONE Administration <MIGUEL ANGEL Jaffe - Last Filed: 10/25/22 16:31> Discharge Plan Discharge Clinical Impression: Calculus, ureter <MIGUEL ANGEL Payan - Last Filed: 10/24/22 13:41> Patient Disposition: Home, Self-Care <MIGUEL ANGEL Payan - Last Filed: 10/24/22 13:41> Instructions: Ureteral Stones (ED) <MIGUEL ANGEL Payna - Last Filed: 10/24/22 13:41> Additional Instructions: CT scan shows you have ureter stone which is causing your pain. You will be discharged with pain medication and Flomax. He also be discharged with a strainer. You need to follow-up with our urologist. Return to the ED immediately for any worsening abdominal pain, blood in urine, flank pain, fever, chills, nausea, vomiting, or any other concerning symptoms. <MIGUEL ANGEL Payan - Last Filed: 10/24/22 13:41> Prescriptions: New oxycodone 5 mg capsule 5 mg PO TID PRN (Reason: pain) 3 Days Qty: 9 0RF Rx Instructions: Partial Fill upon patient request. tamsulosin [Flomax] 0.4 mg capsule 0.4 mg PO DAILY 10 Days Qty: 10 0RF naproxen 500 mg tablet 500 mg PO BID PRN (Reason: pain) 7 Days Qty: 14 0RF No Action famotidine [Pepcid] 20 mg tablet 20 mg PO DAILY Qty: 14 0RF tamsulosin 0.4 mg capsule 0.4 mg PO DAILY 10 Days Qty: 10 0RF ibuprofen 600 mg tablet 600 mg PO Q8H 4 Days Qty: 30 0RF morphine 15 mg tablet 15 mg PO TID PRN (Reason: pain) Qty: 10 0RF Rx Instructions: partial fill okay; Partial Fill upon patient request. ondansetron 4 mg tablet,disintegrating 4 mg PO Q8H PRN (Reason: nausea and vomiting) Qty: 20 0RF <MIGUEL ANGEL Payan - Last Filed: 10/24/22 13:41> Referrals: [facility] [Provider Group] (Ureter stone) <MIGUEL ANGEL Payan - Last Filed: 10/24/22 13:41> Stand Alone Forms: Work/School Release <MIGUEL ANGEL Payan - Last Filed: 10/24/22 13:41> Interventions: ED Discharge Assessment Last Done: 10/24/22 22:39 <MIGUEL ANGEL Payan - Last Filed: 10/24/22 13:41> Discharge Date/Time: 10/24/22 22:40 <MIGUEL ANGEL Payan - Last Filed: 10/24/22 13:41> Print Language: Malian <MIGUEL ANGEL Payan - Last Filed: 10/24/22 13:41>
[2022-10-24 13:38] VITALS: BP 157/82; PULSE 91; RESP 16; TEMP 36.6; O2SAT 97; BMI 37.7
[2022-10-24 14:19] LABS: MANUAL DIFF FLAG NO
[2022-10-24 14:20] LABS: Basophils Percent Auto 0.2 % (0-2); Eosinophils Absolute Auto 0.2 X10*3/uL (0.0-0.4); Eosinophils Percent Auto 1.8 % (0-4); Hematocrit 43.7 % (42.0-52.0); Hemoglobin 14.7 g/dl (14.0-18.0); Imm Gran Abs Auto 0.03 X10*3/uL (0.00-0.03); Imm Gran Pct Auto 0.3 % (0.0-0.4); Lymphocytes Absolute Auto 1.5 X10*3/uL (1.2-4.9); Lymphocytes Percent Auto 15.5 % (20-40); Mean Corpuscular HGB Conc 33.6 g/dl (31.0-36.0); Mean Corpuscular Hemoglobin 31.1 pg (27.0-33.0); Mean Corpuscular Volume 92.4 fL (80.0-98.0); Mean Platelet Volume 9.5 fL (9.4-12.4); Monocytes Absolute Auto 0.6 X10*3/uL (0.1-1.2); Monocytes Percent Auto 6.4 % (2-11); Neutrophils Absolute Auto 7.5 x10*3/uL (2.0-8.3); Neutrophils Percent Auto 75.8 % (45-73); Platelet Count 235 X10*3/uL (160-400); Red Blood Count 4.73 X10*6/uL (4.60-5.80); Red Cell Distribution Width 12.4 % (11.0-16.0); White Blood Count 9.9 X10*3/uL (4.8-10.8)
[2022-10-24 14:21] LABS: Appearance Urine Clear; Color Urine Yellow; Glucose Urine UA Negative (Negative); Leukocyte Esterase Urine Negative (Negative); Nitrite Urine Negative (Negative); UMIC TRIGGER UACC YES; Urine Blood Trace (Negative); Urine Ketones Negative (Negative); Urine Protein Negative (Neg-Trace)
[2022-10-24 14:28] LABS: Bacteria Urine None Seen (None Seen); Hyaline Casts Urine 0-2 /LPF (0-2); Prothrombin Time 11.8 SEC (10.0-13.1); RBC Urine 0-2 /HPF (0-2); Squamous Epithelial Cell Urine 0-2 /HPF (0-2); WBC Urine 0-5 /HPF (0-5)
[2022-10-24 14:37] LABS: Alanine Aminotransferase 22 U/L (0-40); Albumin Level 4.3 g/dL (3.5-5.0); Alkaline Phosphatase 72 U/L (39-117); Anion Gap 15 (12-20); Aspartate Amino Transferase 16 U/L (5-37); Bilirubin Total 0.5 mg/dL (0.0-1.0); Blood Urea Nitrogen 17 mg/dL (9-16); Calcium 9.2 mg/dL (8.4-10.2); Carbon Dioxide 26 mmol/L (22-29); Chloride 106 mmol/L (96-108); Creatinine Clr Calc Pharmacy 69.5; Estimated Glomerular Filt Rate 49; Glucose Random 129 mg/dL (60-115); Magnesium 2.1 mg/dL (1.6-2.6); Potassium 4.4 mmol/L (3.3-5.1); Sodium 143 mmol/L (135-145); Total Protein 6.9 g/dL (6.5-8.0)
--- OUTSIDE RECORDS SUMMARY | 2022-10-24 16:31 | XMS_ITS | Continuity of Care Document ---
:1975 Author Organization [facility] Address [address] [place] [address]- Care Team Providers Name Role Phone Shahzad Joyce DO Primary Care Physician Encounter [facility] Date(s): 07/14/22 - 07/21/[address] [place], [place] [address] Attending Physician: Geni Marin MD Referring Physician: Shahzad Joyce DO Allergies, Adverse Reactions, Alerts No Known Allergies Medications No Known Medications Problem List Condition Confirmation Course Effective Dates Status Health Stat us Informant Obese class II Confirmed Active Vital Signs Most recent to oldest [Reference Range]: 1 Height 167.64 cm (07/14/22 8:21 AM) Weight 107.1 kg (07/14/22 8:21 AM) Pulse Rate [55-90 bpm] 66 bpm (07/14/22 8:21 AM) Body Mass Index [18.5-24.99 kg/m2] 38.11 kg/m2 *>HHI* (07/14/22 8:21 AM) Blood Pressure [90-138/55-84 mm Hg] 143/73 mm Hg *H* (07/14/22 8:21 AM) Respiratory Rate [16-30 br/min] 16 br/min (07/14/22 8:21 AM) Temperature [96.8-100.4 DegF] 97.7 DegF (07/14/22 8:21 AM) Blood pressure sites Arm, right (07/14/22 8:21 AM) Temperature Route Temporal (07/14/22 8:21 AM) Weight Obtained Via Standing scale (07/14/22 8:21 AM) Social History Social History Type Response Smoking Status Never (less than 100 in life time) entered on: 07/14/22 Sex Note Phyllis Serna MA: PERFORM, SIGN, VERIFY Event Display: Patient Education/Instruction Authored Date: [id number] [facility] *BSA Gen Surg Clinical Summary Name AMBER BERG Age 47 Years 1975 PCP Shahzad Joyce DO PCP [facility]# [id number] Visit Date 07/14/2022 08:12:00 Additional Instructions: Scheduled Appointments?? Future Appointments ?No Future Appointments Scheduled Follow-Up Instructions ?? Diagnosis Medications: Please continue your medications until treatment is completed or stopped by your provider. Discuss any questions related to medications with your provider. Allergy Info:?? NKA Medications Given This Visit Future Orders ?No future orders Vital Signs Height 167.64 cm Weight 107.1 kg BMI 38.11 kg/m2 Blood Pressure 143 mm Hg/73 mm Hg Temperature 97.7 DegF Pulse Rate 66 bpm Respiratory Rate 16 br/min 02 Sat Mode of Delivery / You can now view a summary of your hospital visit from the comfort of your home through a free online portal called [employer]. [employer] is a website that allows you to securely view yourmedical information including discharge summary, medications and follow-up visits. ??You can also send a secure electronic message to your doctor???s office to request appointments, renew medications or just ask a question. You can enroll at [email or web address] or register during your next office visit. Disclaimer:?? The information provided is of a general nature and is intended to be used in conjunction with the recommendations and advice of your health care practitioner. ??Every effort has been made to ensure that the information provided is accurate and complete at the time it is provided to you however, as your needs change, or, as new ??information becomes available, different or additional instructions may be required. If you have questions, please consult with your primary care provider or pharmacist, as appropriate.??This information is not intended to serve as substitution for assessment and evaluation by a qualified health care provider. If you do not have a primary care provider, you may find a [facility] provider by calling [facility] Link at [phone]. For information about the plan of care including goals and instructions for your diagnosis, please see the patient education orders section of this document. Patient Education Materials?? The content of this educational material or handout may have been modified, supplemented, or adaptedfrom its original content and format to support your individualized medical care. Please follow instructions discussed with your provider during this visit as well as any education documents you were given today. Patient Care team information Care Team PersonnelName: Shahzad Joyce DO Position: [facility] Physician (General Medicine) Member Role: PCP Address: Address: [address] [place] [address] [address] [place] [address]- Care Team Related PersonsName: ESTRADA BERG Address: [address] [address]
--- OUTSIDE RECORDS SUMMARY | 2022-10-24 16:31 | XMS_ITS | Continuity of Care Document ---
:1975 Author Organization [facility] Address [address] [place] [address]- Care Team Providers Name Role Phone Tylerjossy ZAMBRANO Shahzad Primary Care Physician Encounter [facility] Date(s): 10/02/22 - 10/02/[address] [address] Discharge Disposition: A-D/C Home Attending Physician: Geni Marin MD Admitting Physician: Geni Marin MD Referring Physician: Geni Marin MD Allergies, Adverse Reactions, Alerts No Known Allergies Medications acetaminophen 325 mg oral tablet 975 mg, By Mouth, Once, PRN, Refills 0, Maintenance, Pain , Mild, 10/02/22 17:03:00 EST, Partial fill upon patient request if the prescription is for a schedule II opioid drug. Start Date: 10/02/22 Status: OrderedoxyCODONE 5 mg oral tablet 5 mg, By Mouth, Every 6 hours, PRN, # 16 tablet, Refills 0, Tot. Refills 0, Soft Stop, Pain , Moderate, 10/02/22 17:03:00 EST, Route to Pharmacy Electronically, [id number], Partial fill upon patient request if the prescription is for... Start Date: 10/02/22 Stop Date: 10/06/22 Status: Ordered Problem List Condition Confirmation Course Effective Dates Status Health Stat us Informant Obese class II Confirmed Active Vital Signs Most recent to oldest 1 2 3 [Reference Range]: Height 167 cm 167 cm (10/02/22 3:33 PM) (09/30/22 4:00 PM) Weight 105.5 kg 104.5 kg (10/02/22 3:33 PM) (09/30/22 4:00 PM) Oxygen Saturation [94-100 94 % 93 % 96 % %] (10/02/22 6:15 PM) *L* (10/02/22 5:45 PM) (10/02/22 6:00 PM) Pulse Rate [55-90 bpm] 76 bpm (10/02/22 3:33 PM) Body Mass Index 37.83 kg/m2 37.47 kg/m2 [18.5-24.99 kg/m2] *>HHI* *>HHI* (10/02/22 3:33 PM) (09/30/22 4:00 PM) Blood Pressure 151/89 mm Hg 153/93 mm Hg 145/83 mm Hg [90-138/55-84 mm Hg] *H* *H* *H* (10/02/22 6:15 PM) (10/02/22 6:00 PM) (10/02/22 5:4 5 PM) Respiratory Rate [16-30 19 br/min 20 br/min 15 br/mi n br/min] (10/02/22 6:15 PM) (10/02/22 6:00 PM) *L* (10/02/22 5:45 PM ) Temperature [96.8-100.4 98.5 DegF 98.1 DegF 97.6 Deg F DegF] (10/02/22 6:15 PM) (10/02/22 5:15 PM) (10/02/22 3:3 3 PM) Liters per Minute 5 L/min 5 L/min (10/02/22 5:30 PM) (10/02/22 5:15 PM) Mode of Delivery (Oxygen) Room air Room air Room a ir (10/02/22 6:15 PM) (10/02/22 6:00 PM) (10/02/22 5:4 5 PM) Blood pressure sites Arm, left Arm, left Arm, left (10/02/22 6:15 PM) (10/02/22 6:00 PM) (10/02/22 5:4 5 PM) Temperature Route Temporal Temporal Temporal (10/02/22 6:15 PM) (10/02/22 5:15 PM) (10/02/22 3:3 3 PM) Dry Weight 105.5 kg 104.5 kg (10/02/22 3:33 PM) (09/30/22 4:00 PM) Weight Obtained Via Patient/family stated (09/30/22 4:00 PM) Dry Weight Obtained Via Patient/family stated (09/30/22 4:00 PM) Social History Social History Type Response Smoking Status Never (less than 100 in life time) entered on: 07/14/22 Sex Implantable Device List Procedure Provider Procedure Date Device Type Site Repair Hernia Umbilical Tomas DIETRICH, Geni Argueta 10/02/22 Unknown Umbilicus Laparoscopic Mes Device Serial Lot or Manufacturing Expiration Distinct MRI Implan table Assigning Identifier Number Batch Date Date Identification Safety Status Authority Number Code [id number] Unknown Unknown Unknown 03/10/24 Unknown Unknown Active [id number] Note Carrie Mccoy RN: PERFORM Event Display: Discharge/Transfer Note Hospital Authored Date: [id number] Nursing Discharge Note Entered On: 10/02/2022 18:45 EST Performed On: 10/02/2022 18:44 EST by Carrie Mccoy RN Nursing Discharge Note 2 Discharge Time : 10/02/2022 18:42 EST Discharge Level of Care at Discharge : Home/Snf/Foster Care Patient Left Unit Via : Wheelchair Patient Accompanied Off Unit with : Significant other DC Instructions Provided & Signed by Pt : Yes Patient Understands D/C Instructions : Yes Verbalized Understanding of D/C Plan By : Patient Patient Instructions Discharge Signed : Yes Did Pt have Specialty Bed or Wound Vac : No Carrie Mccoy RN - 10/02/2022 18:44 Carrie Vasquez RN: PERFORM Event Display: Patient Education/Instruction Authored Date: [id number] Inpatient Adult Discharge Instructions [address] [address] Name: AMBER BERG : 1975 Visit: 10/02/2022 14:06:00 Current Date: 10/02/2022 18:34 Account: [id number] Inpatient Adult Discharge Instructions We would like to thank you for allowing us to assist you with your healthcare needs. The following includes patient education materials and information regarding your injury/illness. Our entire staff strives to provide an excellent experience for our patients and their families. PLEASE ENSURE YOU FOLLOW-UP PER THE INSTRUCTIONS BELOW! ?? YOUR OPINION IS IMPORTANT TO US! Please complete the survey you may receive by mail or email. Your feedback will be used to make improvements to the healthcare experiences of our patients and their families. Surveys are administered by [employer] ?? If further treatment with your primary care physician or another doctor is recommended, it is important for you to keep the appointment. Call your primary care physician or return to the Emergency Department immediately if your condition worsens, fails to improve, or new symptoms develop. If you need to find a doctor, you can call [facility] [employer] for a referral at [phone] or toll free at [phone]) or log in to [email or web address].. ?? You can view and manage your care through the patient portal or by using a health care jimena of your choosing. [employer] is a website that allows you to securely view your medical information including your hospital discharge summary, office visit summaries, medications and follow-up visits. You can also request appointments, renew medications, and request access to your medical information using a health care jimena of your choosing, or just ask a question. You can enroll at [email or web address] or register during your next office visit. You have been discharged from [facility], Patient Care Unit: [facility]. If you have any questions regarding these instructions after you leave, please call us and we will be happy to assist you. [facility] Your Care Team Attending Physician Tomas DIETRICH, Geni Argueta Discharging Providers Fabiola DIETRICH, Lucille [place] Reason for Admission UMBILICAL HERNIA CS DS Tests Performed Below is a partial list of the tests performed during your hospitalization. You may have had other tests and procedures not included in this list. Please discuss all test results with your provider. Primary Care Provider Shahzad Joyce DO [facility] [employer]ive Health Care Proxy on File No No qualifying data available. Discharge Vitals Temperature: 98.1 DegF Height: 167 cm Pulse Rate: 76 bpm Weight: 105.5 kg Respiratory Rate:??13 br/min??Low Body Mass Index:??37.83 kg/m2??Critical Systolic Blood Pressure:??145 mm Hg??High Body surface area: 2.21 Diastolic Blood Pressure: 83 mm Hg ?? Oxygen Saturation: 100 % ?? Studies Pending All tests and labs ordered during this hospital stay have been completed unless listed below. Pleasediscuss all pending results with your provider listed above in these instructions. ?? No incomplete studies found What to do next Instructions From Your Doctor Hernia has been repaired. No heavy lifting (more than 20lb) for 2-4 weeks. Band-Aids can be removedin two days and showering can resume. Steri strips will fall off on their own. Soap and water can run over them but do not scrub them. No swimming, soaking, hot tubs until follow-up appointment (10/20 at10:40am). Tylenol 975 [id number], Ibuprofen 600 q8 hours and PRN oxycodone (sent to your [facility]) forpain control.?? Discharge Orders Instructions from your Care Team Next dose of Ibuprofen my be taken at 11pm tonight. Scheduled Follow-Up Appointments Wednesday 10:40 AM EST ?? With: Magdy Vinson Where: [facility] General Surgery [address] [place] [address] Drive [address] [place] [address]- You Need to Schedule the Following Appointments Follow Up with??Geni Marin When?? Where: [address] [place] [address], [address] [place] [address]- Business (1) Follow Up with??Shahzad Joyce When??In 0 days Where: [address] [place] [address] [address] [place] [address]- Business (1) Discharge Medications AMBER BERG :1975 Visit Date:10/02/2022 Medications: Please continue your medications until treatment is completed or stopped by your provider. Medications not listed below should be discontinued. Discuss any questions related to medications with your provider. What How Much When Instructions Next Dose New Acetaminophen (acetaminophen 325 mg oral tablet) 975 Milligram Oral Once as needed for Pain , Mild New Oxycodone (oxyCODONE 5 mg oral tablet) 5 Milligram Oral Every 6 hours as needed for Pain , Moderate Duration: 4 Days Pickup at [id number] Pharmacy Information [id number]: [address] [place], [place] [id number] [phone] Test Results Below is a partial list of the most recent Laboratory test results done prior to this discharge. You may have had other tests and procedures not included in this list. Please discuss all test results with your provider. Allergies (NKA means No Known Allergies) NKA Problems Active Problems??(1) Obese class II?? Education Materials Below is the list of Educational Leaflet Providered with your Discharge Instructions. Surgery Medical Daystay Surgical Overnight Discharge Instructions?? After Hernia Surgery?? Valuables and Belongings I fully understand and agree that [facility] accepts no responsibility for all my personal property including clothing, toilet articles, radios, jewelry, dentures, hearing aids, rings, money, or any other property that is in my possession or is brought to me after admission. I understand certain valuables may be placed in a hospital safe for a short period of time. I understand that the hospital is not liable for loss or damage due to accident, fire, or other natural occurrence while said property is in the safe. I accept full responsibility for any personal property that I keep with me, and will not hold the hospital responsible in case of loss or disappearance. I acknowledge that i have been encouraged to send valuables and belongings home. ?? Date for Pt to Sign Valuables/Belongings: 10/02/22 15:33:00 ?? Valuables & Belongings ?? Clothes Electronic devices Jewelry Monetary Items Personal devices Miscellaneous Medications (Valuables) Valuables at Bedside Pants, Shirt, Shoes, Undergarments ? Valuables Sent Home ? Valuables Sent to Security ? Other Discharge Information ? Pulmonary Rehab Status?? Pulmonary Rehab Discharge Status?? Respiratory Rate:??13 br/min??Low ? Common Emergency Awareness Tips IS IT A STROKE? Act FAST and Check for these signs: FACE Does the face look uneven? ARM Does one arm drift down? SPEECH Does their speech sound strange? TIME Call at any sign of stroke ?? Heart Attack Signs Chest discomfort: Most heart attacks involve discomfort in the center of the chest and lasts more than a few minutes, or goes away and comes back. It can feel like uncomfortable pressure, squeezing, fullness or pain. Discomfort in upper body: Symptoms can include pain or discomfort in one or both arms, back, neck, jaw or stomach. Shortness of breath: With or without discomfort. Other signs: Breaking out in a cold sweat, nausea, or lightheaded. Remember, MINUTES DO MATTER. If you experience any of these heart attack warning signs, call to get immediate medical attention! ?? Smoking can increase your chances of developing chronic health problems and can cause harmful effects to other family members in your house. If you smoke, you are strongly encouraged to quit. Please call [facility] [employer] [facility] at [phone] or [phone] ([phone]) or log in to [email or web address] for referrals to smoking cessation programs. ?? The National Suicide Prevention Hotline is available 05/04 if you or someone you know needs to find areason to keep living. By calling 0-541-046-[employer] (8516) you'll be connected to a skilled, trained counselor at a crisis center in your area. INPATIENT DISCHARGE INSTRUCTIONS SIGNATURE PAGE AMBER BERG Location:[facility] Registration Date and Time:10/02/2022 14:06 [facility] Primary Care Physician: Shahzad Joyce DO, I AMBER BERG, have received the above patient education materials/instructions and have verbalizedunderstanding. If ambulance or transport services are being used I further acknowledge being given achoice of service. ?? If you need to contact me, please call me at this number: . Patient/Deaf And Hard Of Hearing Teacher Name: Patient/Deaf And Hard Of Hearing Teacher Signature: Relationship to Patient: Witness Name/Signature: Date: Carrie Mccoy RN: PERFORM, SIGN, VERIFY Event Display: Patient Education Handout Authored Date: [id number] Carrie Mccoy RN: PERFORM Event Display: Patient Education Leaflets Authored Date: [id number] Surgery Medical Daystay Surgical Overnight Discharge Instructions ?? 295 Medical Daystay/Surgical Overnight Discharge Instructions ? Since your coordination and judgment may be altered by medication and/or anesthesia, a responsible adult must drive you home from the hospital. ? If you have received medication for pain or sedation while under our care, you should not drive, operate machinery, drink alcohol, or sign any legal documents for 24 hours.?? You should have someone with you at home tonight. ? Remain at home the day of discharge.?? You may be up and about unless otherwise instructed by your physician. ? You may resume your daily prescription medication schedule.?? Any depressant medication should be avoided for 24 hours unless otherwise instructed by your surgeon or anesthesiologist. ? Call your physician for a follow-up appointment.? If you experience unusual or severe pain not relied by your pain medication, excessive bleedingor drainage, persistent nausea and vomiting, excessive swelling or redness, foul odor from incision site or fever over 100.6F, you need to call your physician. ? A follow-up phone call by a nurse will be made the day after your procedure.?? If you have stayed with us over night, you will not be receiving a follow-up phone call. ? Nausea and vomiting are a common side effect of prescription pain medication.?? We recommend that pills are not taken on an empty stomach.?? While taking any prescription pain medication you should not drive or drink alcohol. ?Fabiola DIETRICH, Lucille C: PERFORM Event Display: Patient Education Leaflets Authored Date: [id number] After Hernia Surgery ?? [id number] After Hernia Surgery You can often go home the same day as surgery. If you had??surgery to fix a??ventral or incisional hernia, you may need to stay in the hospital overnight.??To speed healing, take an active role in your recovery. These tips can help. Reducing swelling Early on, the area around your incision may be swollen, bruised, and sore. To reduce swelling, apply an ice pack to the area 3 to 5??times a day. Keep it there for??15 to 20 minutes at a time. To makean ice pack, put ice cubes in a plastic bag that seals at the top. Wrap the bag in a thin towel or cloth before using it. Don???t put ice or an ice pack directly on the skin. ?? Managing pain Take any prescribed pain medicines as told. Some pain medicines can cause constipation. So your??healthcare provider??may also tell you to take a laxative or stool softener. A bowel regimen is important because it keeps you from straining after your hernia repair. Placing a pillow over your incision if coughing or sneezing can decrease pain too. ?? Returning to normal You can get back to your normal routine as soon as you feel able, unless your healthcare provider gives you other instructions. Just take it easy and stick to these guidelines: ??? Take short walks toimprove circulation. ??? Don't do any heavy lifting for at least 2 weeks and possibly longer, depending on your repair. ??? Stay out of baths, hot tubs, and swimming pools for at least 1 week to protect your incisions. You can likely take a shower sooner than that. ??? Ask your??provider??when you candrive and go back to work. ??? You can have sex again when you feel ready. ?? Follow-up care Be sure to keep all follow-up visits with your??healthcare provider. These make sure you???re healing well. During visits, your stitches, yessenia, or bandage may be removed. ?? When to call your healthcare provider Call your??healthcare provider??if you have any of these: ??? A large amount of swelling or bruising (some testicular swelling and bruising is normal) ??? Fever of 100.4??F??(38??C) or higher, or as advised by your provider ??? Chills ??? Pain, redness, bleeding, or fluid from the incision that gets worse ??? Trouble peeing ??? Constipation ??? Vomiting ?? Last Reviewed Date: 2021 ?? 8933-8218 [employer]. All rights reserved. This information is not intended as a substitute for professional medical care. Always follow your healthcare professional's instructions. ?? Patient Care team information Care Team PersonnelName: Shahzad Joyce DO Position: [facility] Physician (General Medicine) Member Role: PCP Address: Address: [address] [place] [address] [address] [place] [address]- Care Team Related PersonsName: ESTRADA BERG Address: [address] [place] [address]
[2022-10-24 16:42] VITALS: BP 146/86; PULSE 80; RESP 16; O2SAT 99
--- NOTE | 2022-10-24 17:15 | ED.GENADULT ---
HPI - General Adult General Chief complaint: Abdominal Pain Stated complaint: Possible kidney stones Time Seen by Provider: 10/24/22 16:48 Source: patient Mode of arrival: ambulatory Limitations: no limitations History of Present Illness HPI narrative: 47-year-old male with past medical history of kidney stones and recent hernia abdominal repair surgery in September at [facility] presents to the ED for right flank pain for at least 3 days radiating to right lower quadrant. Related Data Previous Rx's Medication Instructions Recorded famotidine 20 mg tablet (Pepcid) 20 mg PO DAILY #14 tabs 07/16/22 ibuprofen 600 mg tablet 600 mg PO Q8H 4 days #30 tabs 07/16/22 morphine 15 mg immediate release 15 mg PO TID PRN pain #10 tabs 07/16/22 tablet ondansetron 4 mg disintegrating 4 mg PO Q8H PRN nausea and 07/16/22 tablet vomiting #20 tabs tamsulosin 0.4 mg capsule 0.4 mg PO DAILY 10 days #10 caps 07/16/22 Allergies Allergy/AdvReac Type Severity Reaction Status Date / Time No Known Allergies Allergy Verified 07/16/22 04:58 [facility] Past Medical History Medical History Umbilical hernia Social History Social History (Updated 07/16/22 @ 06:50 by Pauly Rangel DO) Patient Tobacco Use Status: Never used Tobacco Advance Directives: No Advance Directives Information Provided: No Physical Exam ED Vital Signs: Vital Signs - 24 hr 10/24/22 13:38 10/24/22 16:42 Temperature 97.8 F Pulse Rate 91 80 Respiratory Rate 16 16 Blood Pressure 157/82 H 146/86 H Pulse Oximetry 97 99 Oxygen Delivery Method Room Air Room Air BMI result Body Mass Index 37.7 Medical Decision Making Lab Data 10/24/22 14:10 10/24/22 14:10 Labs: Lab Results 10/24/22 10/24/22 10/24/22 Range/Units 14:10 14:10 14:10 WBC 9.9 (4.8-10.8) X10*3/uL RBC 4.73 (4.60-5.80) X10*6/uL Hgb 14.7 (14.0-18.0) g/dl Hct 43.7 (42.0-52.0) % MCV 92.4 (80.0-98.0) fL MCH 31.1 (27.0-33.0) pg MCHC 33.6 (31.0-36.0) g/dl RDW 12.4 (11.0-16.0) % Plt Count 235 (160-400) X10*3/uL MPV 9.5 (9.4-12.4) fL Immature Gran % (Auto) 0.3 (0.0-0.4) % Neut % (Auto) 75.8 H (45-73) % Lymph % (Auto) 15.5 L (20-40) % Summers % (Auto) 6.4 (2-11) % Eos % (Auto) 1.8 (0-4) % Baso % (Auto) 0.2 (0-2) % Lymph # (Auto) 1.5 (1.2-4.9) X10*3/uL Summers # (Auto) 0.6 (0.1-1.2) X10*3/uL Eos # (Auto) 0.2 (0.0-0.4) X10*3/uL Baso # (Auto) 0.0 (0.0-0.2) X10*3/uL Abs Immat Gran (auto) 0.03 (0.00-0.03) X10*3/uL Absolute Neuts (auto) 7.5 (2.0-8.3) x10*3/uL Absolute Nucleated RBC 0.000 (0.0-0.012) X10*3/uL Nucleated RBC % (auto) 0.0 (0.0-0.2) /100WBC PT 11.8 (10.0-13.1) SEC INR 1.0 (0.9-1.1) Sodium 143 (135-145) mmol/L Potassium 4.4 (3.3-5.1) mmol/L Chloride 106 (96-108) mmol/L Carbon Dioxide 26 (22-29) mmol/L Anion Gap 15 (12-20) BUN 17 H (9-16) mg/dL Creatinine 1.53 H (0.5-1.4) mg/dL Estim Creat Clear Calc 69.5 Estimated GFR 49 Random Glucose 129 H (60-115) mg/dL Calcium 9.2 (8.4-10.2) mg/dL Magnesium 2.1 (1.6-2.6) mg/dL Total Bilirubin 0.5 (0.0-1.0) mg/dL AST 16 (5-37) U/L ALT 22 (0-40) U/L Alkaline Phosphatase 72 (39-117) U/L Total Protein 6.9 (6.5-8.0) g/dL Albumin 4.3 (3.5-5.0) g/dL Urine Color Urine Appearance Urine pH (5.0-9.0) Ur Specific [place] (1.005-1.025) Urine Protein (Neg-Trace) mg/dL Urine Glucose (UA) (Negative) mg/dL Urine Ketones (Negative) mg/dL Urine Blood (Negative) Urine Nitrite (Negative) Ur Leukocyte Esterase (Negative) Urine RBC (0-2) /HPF Urine WBC (0-5) /HPF Ur Squamous Epith Cells (0-2) /HPF Urine Bacteria (None Seen) Hyaline Casts (0-2) /LPF 10/24/22 Range/Units 14:10 WBC (4.8-10.8) X10*3/uL RBC (4.60-5.80) X10*6/uL Hgb (14.0-18.0) g/dl Hct (42.0-52.0) % MCV (80.0-98.0) fL MCH (27.0-33.0) pg MCHC (31.0-36.0) g/dl RDW (11.0-16.0) % Plt Count (160-400) X10*3/uL MPV (9.4-12.4) fL Immature Gran % (Auto) (0.0-0.4) % Neut % (Auto) (45-73) % Lymph % (Auto) (20-40) % Summers % (Auto) (2-11) % Eos % (Auto) (0-4) % Baso % (Auto) (0-2) % Lymph # (Auto) (1.2-4.9) X10*3/uL Summers # (Auto) (0.1-1.2) X10*3/uL Eos # (Auto) (0.0-0.4) X10*3/uL Baso # (Auto) (0.0-0.2) X10*3/uL Abs Immat Gran (auto) (0.00-0.03) X10*3/uL Absolute Neuts (auto) (2.0-8.3) x10*3/uL Absolute Nucleated RBC (0.0-0.012) X10*3/uL Nucleated RBC % (auto) (0.0-0.2) /100WBC PT (10.0-13.1) SEC INR (0.9-1.1) Sodium (135-145) mmol/L Potassium (3.3-5.1) mmol/L Chloride (96-108) mmol/L Carbon Dioxide (22-29) mmol/L Anion Gap (12-20) BUN (9-16) mg/dL Creatinine (0.5-1.4) mg/dL Estim Creat Clear Calc Estimated GFR Random Glucose (60-115) mg/dL Calcium (8.4-10.2) mg/dL Magnesium (1.6-2.6) mg/dL Total Bilirubin (0.0-1.0) mg/dL AST (5-37) U/L ALT (0-40) U/L Alkaline Phosphatase (39-117) U/L Total Protein (6.5-8.0) g/dL Albumin (3.5-5.0) g/dL Urine Color Yellow Urine Appearance Clear Urine pH 6.0 (5.0-9.0) Ur Specific [place] 1.020 (1.005-1.025) Urine Protein Negative (Neg-Trace) mg/dL Urine Glucose (UA) Negative (Negative) mg/dL Urine Ketones Negative (Negative) mg/dL Urine Blood Trace H (Negative) Urine Nitrite Negative (Negative) Ur Leukocyte Esterase Negative (Negative) Urine RBC 0-2 (0-2) /HPF Urine WBC 0-5 (0-5) /HPF Ur Squamous Epith Cells 0-2 (0-2) /HPF Urine Bacteria None Seen (None Seen) Hyaline Casts 0-2 (0-2) /LPF Discharge Plan Discharge Prescriptions: No Action famotidine [Pepcid] 20 mg tablet 20 mg PO DAILY Qty: 14 0RF tamsulosin 0.4 mg capsule 0.4 mg PO DAILY 10 Days Qty: 10 0RF ibuprofen 600 mg tablet 600 mg PO Q8H 4 Days Qty: 30 0RF morphine 15 mg tablet 15 mg PO TID PRN (Reason: pain) Qty: 10 0RF Rx Instructions: partial fill okay; Partial Fill upon patient request. ondansetron 4 mg tablet,disintegrating 4 mg PO Q8H PRN (Reason: nausea and vomiting) Qty: 20 0RF
[2022-10-24] MEDS: Morphine Sulfate 4 MG/ML CARTRIDGE IVPUSH (17:44)
[2022-10-24] MEDS: Ketorolac Tromethamine 30 MG/ML VIAL IVPUSH (17:44)
[2022-10-24] MEDS: 0.9 % Sodium Chloride 1,000 ML 999 ML IV ×2 (17:52)
[2022-10-24] MEDS: Lactated Ringers 1,000 ML 999 ML IV ×2 (18:59→19:00)
[2022-10-24] MEDS: Tamsulosin HCL 0.4 MG CAPSULE 0.8 MG PO (19:22)
[2022-10-24] MEDS: HYDROmorphone HCl 0.5 MG/0.5 ML SYRINGE IVPUSH (19:22)
[2022-10-24 21:27] LABS: Alanine Aminotransferase 18 U/L (0-40); Albumin Level 3.6 g/dL (3.5-5.0); Alkaline Phosphatase 58 U/L (39-117); Anion Gap 12 (12-20); Aspartate Amino Transferase 14 U/L (5-37); Bilirubin Total 0.6 mg/dL (0.0-1.0); Blood Urea Nitrogen 14 mg/dL (9-16); Calcium 8.4 mg/dL (8.4-10.2); Carbon Dioxide 24 mmol/L (22-29); Chloride 107 mmol/L (96-108); Creatinine Clr Calc Pharmacy 87.2; Estimated Glomerular Filt Rate > 60; Glucose Random 87 mg/dL (60-115); Potassium 3.9 mmol/L (3.3-5.1); Sodium 139 mmol/L (135-145); Total Protein 5.7 g/dL (6.5-8.0)
== END 2022-10-24 22:40 | disposition home or self-care (01) ==
PROVIDERS: Physician Assistant; Physician Assistant Medical; Emergency Provider Internal Medicine; PCP Internal Medicine
DX: N13.2 Hydronephrosis with renal and ureteral calculous obstruction (principal); Z87.442 Personal history of urinary calculi
CPT/HCPCS: 36415; 74176; 80053; 81001; 83735; 85025; 85610; 96361; 96374; 96375; 99284; J1170; J1885; J2270

== ENCOUNTER → 2022-11-09 08:58 | Outpatient (BNVA) | payer OTHER, SELFPAY | PROVIDERS: PCP Internal Medicine; Visit Provider Urology | DX: Z13.89 Encounter for screening for other disorder (principal) ==

== ENCOUNTER 2022-11-16 15:23 | Outpatient (REF) | payer OTHER, SELFPAY ==
--- NOTE | ~2022-11-16 | US_ITS ---
EXAMINATION: US RETROPERITONEAL LIMITED (RENAL ONLY) CLINICAL INFORMATION: Right hydronephrosis with ureteral calculus. COMPARISON: CT abdomen and pelvis 10/24/2022. TECHNIQUE: Ultrasound of the kidneys is performed using grayscale imaging and color Doppler. Bladder not imaged. FINDINGS: RIGHT KIDNEY: 11.9 x 5.8 x 7.9 cm (SAG x AP x TRV). The kidney is normal in size, contour, and echogenicity. Renal cortical thickness is normal. No calculi or focal parenchymal lesions. No hydronephrosis or caliectasis. No visible renal calculi by ultrasound. LEFT KIDNEY: 11.7 x 5.8 x 7.4 cm (SAG x AP x TRV). The kidney is normal in size, contour, and echogenicity. Renal cortical thickness is normal. No hydronephrosis or caliectasis. There is a interpolar simple cyst measuring 4.4 x 4.1 x 4.2 cm. US/US renal BI IMPRESSION: 1. No hydronephrosis or caliectasis. 2. No visible renal calculi. 3. Simple cyst interpolar left kidney 4.4 cm.
== END 2022-11-16 15:24 | disposition home or self-care (01) ==
LOC: HO.HMGCX 15:23
PROVIDERS: PCP Internal Medicine; Visit Provider Urology
DX: N20.1 Calculus of ureter (principal); N13.1 Hydronephrosis with ureteral stricture, not elsewhere classified
CPT/HCPCS: 76775

== ENCOUNTER → 2022-11-25 15:07 | Outpatient (BNVA) | payer OTHER, SELFPAY | PROVIDERS: PCP Internal Medicine; Visit Provider Urology | DX: Z13.89 Encounter for screening for other disorder (principal) ==